=== PATIENT | male | born 1990 | race Caucasian/White ===

== ENCOUNTER 2016-12-29 00:50 | Emergency (ER) | payer SELFPAY ==
[~2016-12-29 00:50] MED LIST: AMOX875T PO; CLIN1CAP5 PO; IBUP800T23 PO
[2016-12-29 00:52] VITALS: BP 137/80; PULSE 84; RESP 16; TEMP 98.8; O2SAT 99
--- NOTE | 2016-12-29 02:03 | RADRPT ---
EXAM DATE/TIME: 12/29/2016 01:35 [place] COMPARISON: No previous studies available for comparison. INDICATIONS : Right hand punching injury. Abrasion at posterior distal 4th metacarpal. MEDICAL HISTORY : None. SURGICAL HISTORY : None. ENCOUNTER: Initial ACUITY: 1 day PAIN SCORE: 7/10 LOCATION: Right hand, 4th metacarpal FINDINGS: Three view examination of the right hand demonstrates no soft tissue swelling, dislocation, or fractu re. The carpal bones appear intact. The interphalangeal and metacarpophalangeal joints are intact. Bony mineralization is normal. CONCLUSION: Unremarkable examination of the right hand. Braeden Hay MD on December 29, 2016 at 2:00 Board Certified Radiologist. This report was verified electronically.
[2016-12-29] MEDS ORDERED: IBUP800T23 PO (02:09)
--- NOTE | 2016-12-29 02:09 | PD ---
HPI Chief Complaint: Musculoskeletal Complaint Time Seen by Provider: 00:35 Travel History International Travel<30 days: No Contact w/Intl Traveler<30days: No Traveled to known affect area: No History of Present Illness HPI Patient is a 26-year-old male presenting to emergency for evaluation of right hand pain after punching his car. He reports pain is 8 out of 10 and describes as aching and throbbing. He localizes the pain to the right third and fourth knuckle radiating up the dorsal aspect of his hand. He denies any weakness, numbness or tingling. PFSH Past Medical History Anemia: Yes ( A CHILD) Anxiety: Yes Depression: Yes Diabetes: Yes Diminished Hearing: No Hypertension: Yes Tetanus Vaccination: < 5 Years Influenza Vaccination: No Past Surgical History Other Surgery: Yes (NASAL CAUTERIZATION) Social History Alcohol Use: No Tobacco Use: Yes (1/2 PPD) Substance Use: No Allergies-Medications (Allergen,Severity, Reaction): Coded Allergies: No Known Allergies (Verified , 12/29/16) Reported Meds & Prescriptions Reported Meds & Active Scripts Active No Active Prescriptions or Reported Medications Review of Systems Except as stated in HPI: all other systems reviewed are Neg Musculoskeletal: Positive: Myalgias, Arthralgias, Pain Physical Exam Narrative GENERAL: Well-nourished, well-developed patient. SKIN: Focused skin assessment warm/dry. HEAD: Normocephalic. EYES: No scleral icterus. No injection or drainage. NECK: Supple, trachea midline. No JVD or lymphadenopathy. CARDIOVASCULAR: Regular rate and rhythm without murmurs, gallops, or rubs. RESPIRATORY: Breath sounds equal bilaterally. No accessory muscle use. GASTROINTESTINAL: Abdomen soft, non-tender, nondistended. MUSCULOSKELETAL: No cyanosis, or edema. Tenderness to palpation over dorsal aspect of right hand over the third and fourth MCP joint. No obvious deformities noted. Patient is neurovascularly intact. BACK: Nontender without obvious deformity. No CVA tenderness. Data Data Last Documented VS Vital Signs Date Time Temp Pulse Resp B/P Pulse Ox O2 Delivery O2 Flow Rate FiO2 12/29/16 00:52 98.8 84 16 137/80 99 Room Air Orders Hand, Complete ([id number]) (12/29/16 ) Ibuprofen (Motrin) (12/29/16 02:15) MDM Medical Decision Making Medical Screen Exam Complete: Yes Emergency Medical Condition: Yes Interpretation(s) Vital Signs Date Time Temp Pulse Resp B/P Pulse Ox O2 Delivery O2 Flow Rate FiO2 12/29/16 00:52 98.8 84 16 137/80 99 Room Air Differential Diagnosis Fracture versus sprain versus strain versus contusion versus other Narrative Course Patient is a 26-year-old male presenting to emergency evaluation of right hand pain after striking his car with his fist. He is neurovascularly intact, there is no obvious deformity noted. Patient was given ibuprofen for pain. Imaging is negative for acute abnormality. Patient was encouraged to rest, ice, elevate extremity. He was encouraged take medications as directed. He was encouraged follow-up with primary doctor, additionally he can return to emergency department for any new or worsening symptoms. Patient verbalized understanding of instructions. Patient stable for discharge. Diagnosis Primary Impression: Hand pain, right Referrals: Primary Care Physician Patient Instructions: General Instructions, Hand Sprain (ED) Additional Instructions: Follow-up with your primary doctor Rest, ice, elevate extremity Take medications as directed Return to emergency department for any new or worsening symptoms Do not strike hard objects with your fist Med/Other Pt SpecificInfo: Prescription(s) given Scripts Ibuprofen 800 Mg [id number] Mg PO Q6HR PRN (PAIN) #40 TAB Ref 0 Prov:Isa Schultz 12/29/16 Disposition: 01 DISCHARGE HOME Condition: Stable Isa Schultz December 29, 2016 02:09
[2016-12-29] MEDS ORDERED: IBUPROFEN 800 MG TAB PO ONE (02:15)
== END 2016-12-29 02:33 | disposition home or self-care (01) ==
LOC: NEPD 00:50
DX: M79.641 Pain in right hand (principal); I10 Essential (primary) hypertension; E11.9 Type 2 diabetes mellitus without complications; F17.210 Nicotine dependence, cigarettes, uncomplicated
CPT/HCPCS: 73130; 99283

== ENCOUNTER 2017-03-05 18:06 | Emergency (ER) | payer SELFPAY ==
[~2017-03-05] VITALS: Ht 185.4 cm; Wt 92.0 kg
[~2017-03-05 18:06] MED LIST changes: -AMOX875T PO; -CLIN1CAP5 PO
[2017-03-05 18:08] VITALS: BP 167/96; PULSE 88; RESP 24; TEMP 99.1; O2SAT 99
[2017-03-05] MEDS ORDERED: PENI500T PO (21:27)
[2017-03-05] MEDS ORDERED: IBUP800T23 PO (21:27)
== END 2017-03-05 20:35 | disposition left against medical advice (07) ==
LOC: NED 20:30
DX: K08.89 Other specified disorders of teeth and supporting structures (principal); Z53.21 Procedure and treatment not carried out due to patient leaving prior to being seen by health care provider
CPT/HCPCS: 99281

== ENCOUNTER 2017-03-05 20:33 | Emergency (ER) | payer SELFPAY ==
[~2017-03-05] VITALS: Ht 185.4 cm; Wt 93.8 kg
[2017-03-05 20:41] VITALS: BP 165/87; PULSE 78; RESP 16; TEMP 99; O2SAT 100
[2017-03-05] MEDS ORDERED: IBUPROFEN 800 MG TAB PO ONE (21:15)
[2017-03-05] MEDS ORDERED: PENICILLIN V POTASSIUM 500 MG TAB PO ONE (21:15)
--- NOTE | 2017-03-05 21:24 | PD ---
HPI Chief Complaint: Pain: Acute or Chronic Time Seen by Provider: 21:10 Travel History International Travel<30 days: No Contact w/Intl Traveler<30days: No Traveled to known affect area: No History of Present Illness HPI 27-year-old male presents to the emergency department for complaint of dental pain. Patient states since dental pain is exacerbating and anxiety attack. Patient does have history of anxiety disorder. Patient states when he has anxiety attack he has chest discomfort. Patient denies any referred neck jaw back shoulder arm or abdominal pain. No shortness of breath or sweats. Patient denies history of cardiac disease hypertension dyslipidemia diabetes. Patient does admit to tobacco use. Patient is currently a participant in drug court is not allowed to take any narcotic medication. Patient is also on no antianxiety was due to his drug court restrictions. Patient states he took a dose of ibuprofen 800 mg approximate 12 noon. Patient reports the pain 10 over 10 in intensity. Patient didn't contact dentist to told him to come to the ER to be started on oral antibiotic and that he could follow up next week in the office regarding his dental caries and dental disease. [facility] Past Medical History Narrative Medical Anemia anxiety depression dental caries dental abscess polysubstance use; tobacco use; nursing notes reviewed Anemia: Yes ( A CHILD) Anxiety: Yes Depression: Yes Diabetes: Yes ((03/05/17 patient denies history of diabetes)) Diminished Hearing: No Hypertension: Yes Past Surgical History Other Surgery: Yes (NASAL CAUTERIZATION) Social History Alcohol Use: No Tobacco Use: Yes (/2 PPD) Substance Use: No Allergies-Medications (Allergen,Severity, Reaction): Coded Allergies: No Known Allergies (Verified , 03/05/17) Reported Meds & Prescriptions Reported Meds & Active Scripts Active Ibuprofen 800 Mg Tab 800 Mg PO Q8H PRN Penicillin V Potassium 500 Mg Tab 500 Mg PO Q6H Ibuprofen 800 Mg Tab 800 Mg PO Q6HR PRN Review of Systems Except as stated in HPI: all other systems reviewed are Neg General / Constitutional: No: Fever, Chills HENT: Positive: Dental Difficulties, No: Congestion Cardiovascular: Positive: Chest Pain or Discomfort ("associated with my anxiety attacks") Respiratory: No: Shortness of Breath Gastrointestinal: No: Vomiting, Abdominal Pain Genitourinary: No: Flank Pain Musculoskeletal: No: Myalgias, Arthralgias Skin: No Rash Neurologic: No: Weakness Psychiatric: Positive: Anxiety Hematologic/Lymphatic: No: Lymph Node Enlargement Physical Exam Narrative GENERAL: Well-developed well-nourished male in no acute distress no respiratory distress SKIN: Warm and dry. HEAD: Normocephalic. EYES: No scleral icterus. No injection or drainage. ENT: Extensive dental caries and mild gingival tenderness and nonfluctuant edema overlying the #15 tooth. NECK: Supple, trachea midline. No JVD or lymphadenopathy. CARDIOVASCULAR: Regular rate and rhythm without murmurs, gallops, or rubs. RESPIRATORY: Breath sounds equal bilaterally. No accessory muscle use. GASTROINTESTINAL: Abdomen soft, non-tender, nondistended. MUSCULOSKELETAL: No cyanosis, or edema. BACK: Nontender without obvious deformity. No CVA tenderness. Data Data Last Documented VS Vital Signs Date Time Temp Pulse Resp B/P Pulse Ox O2 Delivery O2 Flow Rate FiO2 03/05/17 20:41 99.0 78 16 165/87 100 Orders Electrocardiogram (03/05/17 ) Penicillin V Potassium (Veetids) (03/05/17 21:15) Ibuprofen (Motrin) (03/05/17 21:15) Benzocaine 20% Oral Spr (Hurricaine 20% (03/05/17 21:45) MDM Medical Decision Making Medical Screen Exam Complete: Yes Emergency Medical Condition: Yes Medical Record Reviewed: Yes Interpretation(s) EKG was reviewed sinus rhythm rate 73 incomplete right bundle branch block with RSR prime V1 to V2 no acute ST elevation or injury pattern change noted unchanged from 07/30/11 Differential Diagnosis Dentalgia, dental abscess, apical abscess, infected dental caries Narrative Course Hurricaine spray was applied to the gingiva overlying the left mandible dentition; patient was given 800 mg ibuprofen, 500 mg Penicillin VK and is stable for outpatient management. EKG was reviewed sinus rhythm rate 73 incomplete right bundle branch block with RSR prime V1 to V2 no acute ST elevation or injury pattern change noted unchanged from 07/30/11 Diagnosis Primary Impression: Infected dental caries Additional Impression: Anxiety Referrals: Dentist call for appointment Patient Instructions: General Instructions Med/Other Pt SpecificInfo: Prescription(s) given Scripts Ibuprofen 800 Mg [id number] Mg PO Q8H PRN (PAIN GREATER THAN 5) #15 TAB Ref 0 Prov:Karen Ulrich MD 03/05/17 Penicillin V Potassium 500 Mg [id number] Mg PO Q6H #28 TAB Ref 0 Prov:Karen Ulrich MD 03/05/17 Disposition: 01 DISCHARGE HOME Condition: Stable Karen Ulrich MD Mar 05, 2017 21:24
[2017-03-05] MEDS ORDERED: PENI500T PO (21:27)
[2017-03-05] MEDS ORDERED: IBUP800T23 PO (21:27)
[2017-03-05] MEDS ORDERED: BENZOCAINE 20% ORAL SPR 60 ML CAN OROPHARYNG ONE (21:45)
--- NOTE | 2017-03-06 10:14 | EKG ---
Date Performed: 03/05/2017 Time Performed: 20:48:36 PTAGE: 27 years EKG: Sinus rhythm INCOMPLETE RIGHT BUNDLE BRANCH BLOCK BORDERLINE ECG Since PREVIOUS TRACING , no significant change noted PREVIOUS TRACIN06/23/2016 14.01 DOCTOR: Isra Cade Interpretating Date/Time 03/06/2017 10:13:21
== END 2017-03-05 22:00 | disposition home or self-care (01) ==
LOC: PHED 20:33
DX: K02.9 Dental caries, unspecified (principal); K04.7 Periapical abscess without sinus; F41.9 Anxiety disorder, unspecified; R07.89 Other chest pain; F17.200 Nicotine dependence, unspecified, uncomplicated
CPT/HCPCS: 93005; 99283